=== PATIENT | male | born 1955 | race Caucasian/White ===

== ENCOUNTER 2017-08-21 05:57 | Day surgery (SDC) | payer OTHER ==
[2017-08-21] MEDS ORDERED: DIPRIVAN 200 MG/20 ML IV ONE (05:58)
[2017-08-21] MEDS ORDERED: Versed 2 MG/2 ML Injection IV ONE (05:58)
[2017-08-21] MEDS ORDERED: Lactated Ringers 1,000 ML IV SCH (06:30)
[2017-08-21] MEDS ORDERED: Lactated Ringers 1,000 ML IV ONE (07:41)
--- NOTE | 2017-08-21 08:23 | OP ---
SURGERY DATE/TIME: 08/21/2017713 PREOPERATIVE DIAGNOSIS: Screening colonoscopy. POSTOPERATIVE DIAGNOSES: 1) Colon polyps x5. 2) Diffuse diverticulosis. PROCEDURE: Colonoscopy. SURGEON: Jonathon Villalta M.D. ANESTHESIA: MAC by Joao Driscoll CRNA. ESTIMATED BLOOD LOSS: Minimal. SPECIMENS: Six hot forceps polypectomies. DESCRIPTION OF PROCEDURE: After informed written consent was obtained, the patient was taken to the endoscopy suite. He underwent monitored anesthesia and a digital rectal exam showed normal sphincter tone and no internal lesions. The scope was inserted into the rectum and sequentially the entire colonic mucosa was traversed. The level of cecum was reached and verified with direct visualization of ileocecal valve. Upon withdrawal careful mucosal inspection revealed two sessile polyps in the ascending colon. One of them was removed in piecemeal fashion. They were sent in the same container for pathology. On further withdrawal there was a sessile polyp in the transverse colon which was removed in its entirety with hot forceps as well with good hemostasis and complete removal of the lesions. There were three other lesions found in the sigmoid colon all of which were sent in the same container. They were all small sessile polyps removed with hot forceps in their entirety. Prior to withdrawal retroflexion showed no internal lesions. The scope was removed and the patient was transferred to the recovery room in good condition.
[2017-08-21 09:04] VITALS: BP 148/87; PULSE 64; O2SAT 95
== END 2017-08-21 09:05 | disposition home or self-care (01) ==
LOC: SDC 05:57
PROVIDERS: ATTEND Family Medicine
PROC: 0DBK8ZX Excision of Ascending Colon, Via Natural or Artificial Opening Endoscopic, Diagnostic (ICD-10-PCS; principal; 2017-08-21)
PROC: 0DBL8ZX Excision of Transverse Colon, Via Natural or Artificial Opening Endoscopic, Diagnostic (ICD-10-PCS; 2017-08-21)
PROC: 0DBN8ZX Excision of Sigmoid Colon, Via Natural or Artificial Opening Endoscopic, Diagnostic (ICD-10-PCS; 2017-08-21)
DX: K63.5 Polyp of colon (principal); Z12.11 Encounter for screening for malignant neoplasm of colon; K57.90 Diverticulosis of intestine, part unspecified, without perforation or abscess without bleeding
CPT/HCPCS: 00812; 88305; J2250; J2704

== ENCOUNTER 2019-03-02 17:33 | Emergency (ER) | payer OTHER | END 2019-03-02 20:47 | disposition home or self-care (01) | LOC: ED 17:33 ==

== ENCOUNTER 2020-01-05 09:21 | Day surgery (SDC) | payer MEDICARE, OTHER ==
[2020-01-05] MEDS ORDERED: Lactated Ringers 1,000 ML IV ONE ×2 (09:31→14:26)
[2020-01-05] MEDS ORDERED: XYLOCAINE 1% HCL 20 ML MDV ONE (12:19)
[2020-01-05 13:26] VITALS: O2SAT 96
--- NOTE | 2020-01-05 13:44 | OP ---
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 PROCEDURES: 1) Excision of right posterior auricular scalp soft tissue mass measuring 3 x 3 x 1.5 cm. 2) IV sedation 60 minutes. SURGEON: Nate Enriquez M.D. ANESTHESIA: See sedation records. IV Fentanyl and Versed used for 60 minutes. SPECIMEN: Right scalp lesion. PATIENT CONDITION: Stable. COMPLICATIONS: None. HISTORY: The patient is a 64 year-old male who has had a right posterior auricular soft tissue mass. He was previously evaluated at an outside physician's office where they did a biopsy which came back as lipoma. This was bothersome symptomatic and he desired removal. Risk of infection, bleeding, sensory nerve injury were discussed with the patient and he elected to proceed. FINDINGS: A 3 x 3 x 1.5 cm fatty mass posterior to the right ear extending down the fascia. DESCRIPTION OF PROCEDURE: The patient was brought to operating room. He was placed on monitors. Nurse provided monitoring throughout the procedure. I provided conscious sedation for 60 minutes with IV Versed and Fentanyl. I believe around 5 mg of Versed and 100 of Fentanyl total. The patient maintained his saturations on room air above 90% the entire case and was awake and talked to us for most of it. The patient was prepped in routine fashion. He was draped. Time out was performed. The prior scar was visible posterior to the right ear. There was a palpable 2 cm soft tissue mass. The scar was incised. This was extended to about 4 cm. This was carried down to the fatty mass. It was circumferentially dissected out. This extended down to the fascia. It had to be peeled off the fascia. There was good hemostasis. The deep dermis was reapproximated with 3-0 Vicryl suture. The skin was reapproximated with 4-0 chromic suture. Bacitracin was applied to the wound. All counts were correct. The patient tolerated the procedure well.
[2020-01-05 13:58] VITALS: BP 158/80; PULSE 75
[2020-01-05] MEDS ORDERED: BACIGUENT 30 GM ONE (13:59)
== END 2020-01-05 14:00 | disposition home or self-care (01) ==
LOC: SDC 09:21
PROVIDERS: ATTEND Surgery
DX: D17.0 Benign lipomatous neoplasm of skin and subcutaneous tissue of head, face and neck (principal); Z79.899 Other long term (current) drug therapy
CPT/HCPCS: 88304; 88311; A9270-GY

== ENCOUNTER 2022-08-28 06:24 | Day surgery (SDC) | payer MEDICARE, OTHER ==
[2022-08-28] MEDS ORDERED: Lactated Ringers 1,000 ML IV ONE ×2 (06:57→08:52)
[2022-08-28] MEDS ORDERED: Lactated Ringers 1,000 ML IV SCH (07:30)
[2022-08-28] MEDS ORDERED: Versed 2 MG/2 ML Injection ONE (08:10)
[2022-08-28] MEDS ORDERED: DIPRIVAN 200 MG/20 ML IV ONE ×3 (08:10→08:51)
[2022-08-28] MEDS ORDERED: Xylocaine-Mpf 2% 5 Ml Vial ONE (08:10)
[2022-08-28 09:55] VITALS: BP 144/92; PULSE 70; O2SAT 98
--- NOTE | 2022-08-28 11:03 | OP ---
SURGERY DATE/TIME: 08/28/2022 0809 PREOPERATIVE DIAGNOSES: 1) History of colon polyps. 2) Family history of colon cancer. POSTOPERATIVE DIAGNOSIS: Multiple colon polyps removed. PROCEDURE: Colonoscopy. SURGEON: Jonathon Villalta M.D. ANESTHESIA: MAC by Joao Driscoll CRNA. ESTIMATED BLOOD LOSS: Minimal. SPECIMENS: One hot snare polypectomy and seven hot forceps polypectomies sent for pathology. DESCRIPTION OF PROCEDURE: After informed written consent was obtained, the patient was taken to the endoscopy suite. He underwent monitored anesthesia. Digital rectal exam showed normal sphincter tone and no internal lesions. The scope was inserted into the rectum and sequentially the entire colonic mucosa was traversed. The level of cecum was reached and verified with direct visualization of the ileocecal valve. Upon entry there was a broad based polyp in the sigmoid colon which was removed with a snare, cauterized and removed in its entirety. There were seven other sessile polyps in multiple areas that were documented including the hepatic flexure, transverse colon and sigmoid colon. There was some difficulty with cautery during this procedure and it had to be switched out. Polyps were retrieved and sent for pathology testing. Prior to withdrawal retroflexion showed no internal lesions. The scope was removed. The patient was transferred to the recovery room in good condition. He will follow up in a week for pathology results.
== END 2022-08-28 10:05 | disposition home or self-care (01) ==
LOC: SDC 06:24
PROVIDERS: ATTEND Family Medicine
DX: Z09 Encounter for follow-up examination after completed treatment for conditions other than malignant neoplasm (principal); Z86.010 Personal history of colon polyps; Z80.0 Family history of malignant neoplasm of digestive organs; D12.4 Benign neoplasm of descending colon; D12.3 Benign neoplasm of transverse colon; D12.5 Benign neoplasm of sigmoid colon; K62.1 Rectal polyp
CPT/HCPCS: J2250; J2704